=== PATIENT | female | born 1990 | race Caucasian/White ===

== ENCOUNTER 2017-04-29 14:38 | Emergency (ER) | payer MEDICAID ==
[2017-04-29 14:56] VITALS: BP 114/77; PULSE 85; RESP 16; TEMP 98.1; O2SAT 99
--- NOTE | 2017-04-29 16:01 | EDPHY ---
H & P Time Seen by Provider: 04/29/17 15:07 HPI/ROS: 26-year-old female presents complaining of rash to her left arm of several days duration, she is concerned because a friend of hers had MRSA. She is also concerned because she has had a recent tattoo. No fevers or chills no allergies to medicines patient states prior to rash beginning she had been at an outdoor concert where it was very hot and close contacts with multiple people very sweaty. She denies any other recollection of unusual contact, or new exposures Review of systems As per HPI General no fever no chills no weakness HEENT no eye pain no eye discharge. No eye redness, no sore throat Respiratory no cough, no shortness of breath Cardiac no chest pain, no peripheral edema GI no abdominal pain, no diarrhea, no constipation, no nausea, no vomiting no flank pain, no hematuria, no dysuria Musculoskeletal no myalgias, no joint pain Heme no easy bruising, no easy bleeding Endo no polyuria, no polydipsia Skin positive rashes, no pruritus Neuro no syncope, no dizziness, no headaches Psych is no suicidal ideation, no homicidal ideation Past Medical/Surgical History: noncontributory Social History: alcohol socially, denies excessive drug use Smoking Status: Never smoked Physical Exam: 26-year-old female Alert and oriented in no acute distress nontoxic appearance, afebrile Atraumatic normocephalic Neck no JVD Lungs clear to auscultation, no respiratory distress Heart regular rate and rhythm Extremities no cyanosis clubbing edema Skin Left arm Left upper arm 1.5 cm area of erythema slightly raised with tenderness to palpation and central pustule lower forearm raised 3 mm firm lesion off white in color , no lymphangitic streaks, no drainage No arm swelling Capillary refill intact Distal sensation intact Full range of motion at shoulder, elbow, wrist and all digits Constitutional: Initial Vital Signs Temperature (C) 36.7 C 04/29/17 14:53 Heart Rate 85 04/29/17 14:53 Respiratory Rate 16 04/29/17 14:53 Blood Pressure 114/77 04/29/17 14:53 O2 Sat (%) 99 04/29/17 14:53 O2 Delivery Mode Room Air Allergies/Adverse Reactions: No Known Allergies Allergy (Verified 04/29/17 14:52) Home Medications: Medication Instructions Recorded Clindamycin HCl [Clindamycin] 300 mg PO TID #30 cap 04/29/17 Medical Decision Making ED Course/Re-evaluation: pt seen and evaluated for rash to left arm for several days. differential diagnosis folliculitis, pimple, insect sting with infection, pustule, molluscum impression/plan 2 lesions 1) pustule/pimple deroofed, small amt white dc, sent for culture home on cephalexin follow up pcp return if worsening 2)raised round lesion, no pustule-?mooluscum Departure - Departure Disposition: Home, Routine, Self-Care Clinical Impression: Skin pustule Condition: Good Instructions: Clindamycin (By mouth), Folliculitis (ED) Additional Instructions: [facility] Referrals: LAURA NARAYANAN,Deni [Primary Care Provider] - As per Instructions Prescriptions: Clindamycin HCl [Clindamycin] 300 mg PO TID #30 cap
== END 2017-04-29 16:06 | disposition home or self-care (01) ==
LOC: CED 14:38
DX: L08.9 Local infection of the skin and subcutaneous tissue, unspecified (principal)